=== PATIENT | female | born 1975 | race Caucasian/White ===

== ENCOUNTER 2018-03-05 18:53 | Emergency (ER) | payer MEDICAID ==
[~2018-03-05] VITALS: Ht 167.6 cm; Wt 58.0 kg
[~2018-03-05 18:53] MED LIST: IBUP-1985 PO; OMEP40CA37 PO; ONDA4TAB6 PO
[2018-03-05 18:56] VITALS: BP 125/86
[2018-03-05] MEDS ORDERED: proparacaine 0.5% ophthalmic drops 15ml LEFTEYE ONE (19:25)
[2018-03-05] MEDS ORDERED: PROPARACAINE/FLUORESCEIN ophthalmic drops 5ml bottle LEFTEYE ONE (19:40)
[2018-03-05] MEDS ORDERED: CIPR2.5D18 LEFTEYE (20:10)
== END 2018-03-05 20:33 | disposition home or self-care (01) ==
LOC: ER 18:53
DX: S05.02XA Injury of conjunctiva and corneal abrasion without foreign body, left eye, initial encounter (principal); F41.9 Anxiety disorder, unspecified; J45.909 Unspecified asthma, uncomplicated; J34.89 Other specified disorders of nose and nasal sinuses; Z88.1 Allergy status to other antibiotic agents; Z59.0 Homelessness; X58.XXXA Exposure to other specified factors, initial encounter; Y93.89 Activity, other specified; Y92.89 Other specified places as the place of occurrence of the external cause; Y99.8 Other external cause status
CPT/HCPCS: 99283